=== PATIENT | female | born 1985 | race Caucasian/White ===

== ENCOUNTER 2017-01-05 11:56 | Emergency (ER) | payer SELFPAY ==
[2017-01-05 13:44] LABS: Bilirubin Negative (Negative); Blood, Urine Negative (Negative); Clarity Clear (Clear); Glucose, Urine (Dipstick) Negative (Negative); Leukocyte Negative (Negative); Nitrite Negative (Negative); Protein, Urine (Dipstick) Negative (Neg-Trace); Specific Gravity, Urine 1.015 (1.005-1.030); Urobilinogen 0.2 mg/dL (0.2-1.0); pH, Urine 7.5 (5.0-9.0)
[2017-01-05] MEDS ORDERED: Fentanyl 100 MCG/2 ML VIAL ONE (14:03)
[2017-01-05] MEDS ORDERED: Orphenadrine Citrate 60 MG/2 ML VIAL ONE (14:09)
== END 2017-01-05 14:28 | disposition home or self-care (01) ==
LOC: BURERS 11:56
DX: G89.29 Other chronic pain (principal); M54.5 Low back pain; M54.16 Radiculopathy, lumbar region
CPT/HCPCS: 81003; 96372; J2360; J3010

== ENCOUNTER 2018-06-26 22:03 | Emergency (ER) | payer SELFPAY ==
[2018-06-26] MEDS ORDERED: Dexamethasone 4 mg/ml Vial ONE ×2 (22:25)
[2018-06-26] MEDS ORDERED: AMOXicillin 250 MG CAP PO SCH (22:30)
[2018-06-26] MEDS ORDERED: Cephalexin 500 MG CAP ONE (22:35)
== END 2018-06-26 22:35 | disposition home or self-care (01) ==
LOC: BURERS 22:03
DX: H66.91 Otitis media, unspecified, right ear (principal); F17.210 Nicotine dependence, cigarettes, uncomplicated; E05.90 Thyrotoxicosis, unspecified without thyrotoxic crisis or storm; F31.9 Bipolar disorder, unspecified; F41.9 Anxiety disorder, unspecified; Z79.891 Long term (current) use of opiate analgesic; Z79.899 Other long term (current) drug therapy
CPT/HCPCS: 99282; J1100

== ENCOUNTER 2018-08-26 11:20 | Emergency (ER) | payer SELFPAY | END 2018-08-26 11:41 | disposition home or self-care (01) | LOC: BURERS 11:20 | DX: H72.91 Unspecified perforation of tympanic membrane, right ear (principal); E05.90 Thyrotoxicosis, unspecified without thyrotoxic crisis or storm; F41.9 Anxiety disorder, unspecified; F31.9 Bipolar disorder, unspecified; F17.210 Nicotine dependence, cigarettes, uncomplicated | CPT/HCPCS: 99282 ==

== ENCOUNTER 2018-09-17 08:44 | Emergency (ER) | payer SELFPAY ==
--- NOTE | 2018-09-17 09:54 | RAD ---
XR Lumbar Spine 2 Or 3 View: 09/17/2018 9:11 AM CLINICAL INDICATION: Pain, posttraumatic injury COMPARISON: None. FINDINGS: Fracture:No fracture. Arthropathy:None of significance. Incidental findings:Bilateral tubal ligation clips. There is a curvilinear radiopaque density overlyi ng the inferolateral left chest, of indeterminate chronicity. Correlate clinically. IMPRESSION: 1. No acute osseous abnormality.
--- NOTE | 2018-09-17 10:04 | CT ---
CT facial bones, noncontrast CLINICAL HISTORY: Pain, injury COMPARISON: None FINDINGS: Facial bones: Nasal bone irregularity, bilaterally compatible with nasal bone fracture. Facial soft tissues: Embedded metallic foreign body at the right lateral facial soft tissues producin g streak artifact Orbital contents: No acute abnormality. Paranasal sinuses: Mucosal thickening, and retention cyst formation. There is right mastoid effusion. IMPRESSION: Nasal bone fracture. Right mastoid effusion. Correlate clinically.
== END 2018-09-17 10:31 | disposition home or self-care (01) ==
LOC: BURERS 08:44
DX: S02.2XXA Fracture of nasal bones, initial encounter for closed fracture (principal); S40.022A Contusion of left upper arm, initial encounter; S40.021A Contusion of right upper arm, initial encounter; S80.12XA Contusion of left lower leg, initial encounter; S80.11XA Contusion of right lower leg, initial encounter; E05.90 Thyrotoxicosis, unspecified without thyrotoxic crisis or storm; F43.10 Post-traumatic stress disorder, unspecified; F41.9 Anxiety disorder, unspecified; F31.9 Bipolar disorder, unspecified; F17.210 Nicotine dependence, cigarettes, uncomplicated; Z79.899 Other long term (current) drug therapy; Z79.1 Long term (current) use of non-steroidal anti-inflammatories (NSAID); Y04.0XXA Assault by unarmed brawl or fight, initial encounter
CPT/HCPCS: 70486; 72100

== ENCOUNTER 2019-11-20 18:18 | Emergency (ER) | payer SELFPAY ==
[2019-11-20] MEDS ORDERED: Morphine 4 MG/ML VIAL ONE (18:29)
[2019-11-20] MEDS ORDERED: Ondansetron PF 4 MG/2 ML Vial ONE (18:29)
[2019-11-20 18:52] LABS: BHCG - Serum Negative (NEGATIVE); Pregs Control Background? CLEAR/WHITE (CLR/WHITE); Pregs Control Bar Appear? YES (CONTROL BAR)
[2019-11-20 18:56] LABS: Hemoglobin 13.1 g/dL (12.0-16.0); Mean Corpuscular HGB CONC 31.5 g/dL (32.0-36.0); Mean Corpuscular Hemoglobin 30.9 pg (27.0-31.0); Mean Corpuscular Volume 97.9 fL (78.0-98.0); Mean Platelet Volume 7.3 fL (7.4-10.4); Platelet Count 249 thou/uL (130-400); RBC Distribution Width 12.2 % (11.5-14.5); Red Blood Cell (RBC) Count 4.23 mill/uL (4.20-5.40); White Blood Cell (WBC) Count 15.2 thou/uL (4.8-10.8)
[2019-11-20 19:02] LABS: ALT (SGPT) 19 U/L (8-55); AST (SGOT) 14 U/L (5-34); Albumin 4.1 g/dL (3.5-5.0); Alkaline Phosphatase 62 U/L (40-110); Anion Gap 14 mmol/L (10-20); BUN (Urea Nitrogen) 7 mg/dL (7.0-18.7); Bilirubin, Total 0.4 mg/dL (0.2-1.2); Calc. Creatinine Clearance 0 mL/min (70-130); Calcium 9.3 mg/dL (7.8-10.44); Carbon Dioxide 23 mmol/L (22-29); Chloride 100 mmol/L (98-107); Estimated GFR-MDRD Greater than 90; Globulin 3.4 g/dL (2.4-3.5); Glucose 93 mg/dL (70-105); Lipase 6 U/L (8-78); Protein, Total 7.5 g/dL (6.0-8.3); Sodium 133 mmol/L (136-145)
[2019-11-20 19:10] LABS: Band 17 % (5-11); Lymphocytes 18 % (21-51); MDiff Complete? YES; Monocytes 6 % (0-10); Neutrophil 59 % (42-75)
[2019-11-20 19:42] LABS: Bilirubin Negative (Negative); Blood, Urine Moderate (Negative); Clarity Cloudy (Clear); Glucose, Urine (Dipstick) Negative (Negative); Ketone, Urine 15 mg/dL (Negative); Leukocyte Large (Negative); Nitrite Positive (Negative); Protein, Urine (Dipstick) 100 mg/dL (Neg-Trace); Urobilinogen 0.2 mg/dL (Less than 2)
[2019-11-20 19:43] LABS: Bacteria/HPF 4+ HPF (None Seen); RBC/HPF 0-3 HPF (0-3); Squamous Epithelial 0-3 HPF (0-3); WBC/HPF Greater Than 50 HPF (0-3)
[2019-11-20 19:50] LABS: Cocaine Metabolite Screen Not Detected (NotDetected); Phencyclidine (PCP) Not Detected (NotDetected); THC/Cannabinoid Screen Detected (NotDetected)
[2019-11-20 19:51] LABS: Amphetamine Detected (NotDetected); Barbiturates Screen Not Detected (NotDetected); Benzodiazepine Screen Not Detected (NotDetected); Medtox Control Line Valid? VALID (VALID); Methadone Not Detected (NotDetected); Methamphetamine Detected (NotDetected); Opiate Screen Detected (NotDetected); Oxycodone Screen Not Detected (NotDetected); Tricyclic Screen Not Detected (NotDetected)
[2019-11-20] MEDS ORDERED: cefTRIAXone\\ROCEPHIN 1 GM VIAL ONE (19:58)
[2019-11-20] MEDS ORDERED: Sodium Chloride 0.9% 100 ML ONE (19:58)
[2019-11-20] MEDS ORDERED: Ketorolac Tromethamine 30 MG/ML VIAL ONE (19:58)
--- NOTE | 2019-11-20 20:20 | RAD ---
PORTABLE CHEST: Date: 11-20-2019 An AP portable film at 1840 is compared with a 08-26-2019 study. FINDINGS: The heart is normal in size and the lungs are clear. No infiltrate or effusion was seen. There is no vascular congestion or edema. No air is seen beneath the diaphragm. IMPRESSION: No acute thoracic finding. POS: HOME
[2019-11-20] MEDS ORDERED: Metoclopramide HCl 10 MG/2 ML VIAL ONE (20:27)
[2019-11-20] MEDS ORDERED: diphenhydrAMINE 50 MG/ML VIAL ONE (20:27)
[2019-11-20] MEDS ORDERED: Magnesium 2 GM/50 ML BAG (IN WATER) ONE (20:34)
[2019-11-20] MEDS ORDERED: Magnesium Citrate 300 ML BOT ONE (20:35)
[2019-11-20] MEDS ORDERED: Magnesium Citrate 300 ML BOT PO SCH (20:45)
--- NOTE | 2019-11-20 21:23 | CT ---
CT ABDOMEN AND PELVIS WITHOUT CONTRAST: Date: 11-20-[address] of the abdomen and pelvis was done for evaluation of left flank pain. No prior scans were a vailable for comparison. The study was done without oral or IV contrast by request. FINDINGS: The lung bases are clear. No infiltrate or effusion was seen. There is a little asymmetry in the tiss ue of the lower left breast but not enough of it is seen to be diagnostic. The liver, spleen, pancrea s, adrenal glands, gallbladder, kidneys and abdominal aorta were unremarkable within the limitations of a noncontrast study. The bowel shows no distention but there is a large amount of fecal material w ithin it. No inflammatory changes are seen in the abdomen. No free air or free fluid is present. CT of the pelvis showed no acute changes. The patient's bowel is rather redundant so it is difficult to separate one section from the other, much less identify the appendix with any certainty. There are no inflammatory changes in the region. IMPRESSION: 1. Presumed constipation but no other acute abdominal or urinary tract findings. 2. Slight asymmetry of tissue in the lower left breast. This probably would be even less of concern i f we had two or three more slices above the first one. Nevertheless, a manual exam of this area to ma ke sure one feels no palpable abnormality would be prudent. Findings and recommendations called to Dr. Schneider at 1942 on 11-20-2019. POS: HOME
== END 2019-11-20 21:20 | disposition home or self-care (01) ==
LOC: BURERS 18:18
DX: N10 Acute pyelonephritis (principal); K59.00 Constipation, unspecified; E05.90 Thyrotoxicosis, unspecified without thyrotoxic crisis or storm; F41.9 Anxiety disorder, unspecified; F31.9 Bipolar disorder, unspecified; F43.10 Post-traumatic stress disorder, unspecified; F17.210 Nicotine dependence, cigarettes, uncomplicated; Z79.899 Other long term (current) drug therapy
CPT/HCPCS: 51701; 71045; 74176; 80053; 80306; 81003; 81015; 83605; 83690; 84703; 85025; 93005; 96365; 96367; 96375; J0696; J1200; J1885; J2270; J2405; J2765; J3475; J3490

== ENCOUNTER 2020-02-15 13:33 | Emergency (ER) | payer SELFPAY ==
[2020-02-15 14:24] LABS: #Basophils 0.1 thou/uL (0.0-0.2); #Eosinphils 0.1 thou/uL (0.0-0.7); #Lymphocytes 2.8 thou/uL (1.20-3.40); #Monocytes 0.4 thou/uL (0.11-0.59); #Neutrophils 3.9 thou/uL (1.40-6.50); %Basophils 0.8 % (0.0-1.0); %Lymphocytes 38.1 % (21.0-51.0); %Monocytes 5.5 % (0.0-10.0); %Neutrophils 53.7 % (42.0-75.0); Hemoglobin 13.2 g/dL (12.0-16.0); Mean Corpuscular HGB CONC 32.7 g/dL (32.0-36.0); Mean Corpuscular Hemoglobin 31.7 pg (27.0-31.0); Mean Corpuscular Volume 96.9 fL (78.0-98.0); Mean Platelet Volume 6.7 fL (7.4-10.4); Platelet Count 244 thou/uL (130-400); RBC Distribution Width 13.7 % (11.5-14.5); Red Blood Cell (RBC) Count 4.17 mill/uL (4.20-5.40); White Blood Cell (WBC) Count 7.3 thou/uL (4.8-10.8)
[2020-02-15 14:38] LABS: BHCG - Serum Negative (NEGATIVE); Pregs Control Background? CLEAR/WHITE (CLR/WHITE); Pregs Control Bar Appear? YES (CONTROL BAR)
[2020-02-15 14:43] LABS: ALT (SGPT) 19 U/L (8-55); AST (SGOT) 13 U/L (5-34); Acetaminophen Less than 6.0 mcg/mL (10.0-30.0); Albumin 3.8 g/dL (3.5-5.0); Alcohol Less than 10 mg/dL (Less than 10); Alkaline Phosphatase 39 U/L (40-110); Anion Gap 12 mmol/L (10-20); BUN (Urea Nitrogen) 10 mg/dL (7.0-18.7); Bilirubin, Total Less than 0.2 mg/dL (0.2-1.2); Calc. Creatinine Clearance 0 mL/min (70-130); Calcium 8.6 mg/dL (7.8-10.44); Carbon Dioxide 25 mmol/L (22-29); Chloride 107 mmol/L (98-107); Estimated GFR-MDRD 90; Globulin 2.9 g/dL (2.4-3.5); Glucose 72 mg/dL (70-105); Potassium 4.5 mmol/L (3.5-5.1); Protein, Total 6.7 g/dL (6.0-8.3); Salicylate Less than 8.0 mg/dL (15.0-30.0); Sodium 139 mmol/L (136-145)
[2020-02-15 15:14] LABS: Bilirubin Negative (Negative); Blood, Urine Negative (Negative); Clarity Cloudy (Clear); Glucose, Urine (Dipstick) Negative (Negative); Ketone, Urine Negative (Negative); Leukocyte Negative (Negative); Nitrite Negative (Negative); Protein, Urine (Dipstick) Negative (Neg-Trace); Urobilinogen 0.2 mg/dL (Less than 2); pH, Urine 8.5 (5.0-9.0)
[2020-02-15 15:31] LABS: Amphetamine Detected (NotDetected); Barbiturates Screen Not Detected (NotDetected); Benzodiazepine Screen Not Detected (NotDetected); Cocaine Metabolite Screen Not Detected (NotDetected); Medtox Control Line Valid? VALID (VALID); Methadone Not Detected (NotDetected); Methamphetamine Detected (NotDetected); Opiate Screen Not Detected (NotDetected); Oxycodone Screen Not Detected (NotDetected); Phencyclidine (PCP) Not Detected (NotDetected); THC/Cannabinoid Screen Not Detected (NotDetected); Tricyclic Screen Not Detected (NotDetected)
== END 2020-02-15 15:00 | disposition home or self-care (01) ==
LOC: BURERS 13:33
DX: R42 Dizziness and giddiness (principal); T43.595A Adverse effect of other antipsychotics and neuroleptics, initial encounter; F31.9 Bipolar disorder, unspecified; F41.9 Anxiety disorder, unspecified; F17.210 Nicotine dependence, cigarettes, uncomplicated; Z79.899 Other long term (current) drug therapy
CPT/HCPCS: 36415; 80053; 80178; 80306; 80307; 81003; 83605; 83880; 84703; 85025; 93005

== ENCOUNTER 2020-06-12 19:30 | Emergency (ER) | payer SELFPAY ==
--- NOTE | 2020-06-13 07:29 | RAD ---
CHEST 2 VIEWS: DATE: 06/12/2020. COMPARISON: Comparison is made with the 11/20/2019 study. The heart is normal in size. The mediastinum shows no w idening or shift. Both lungs are fully inflated and clear with no pneumothorax or pleural effusion. FINDINGS: No gross rib fracture was seen. The only questionable area was a small area in the lateral part of t he right 9th rib. I cannot tell if this is just an overlapping shadow, a slight cortical dip in the rib, or some minimal pleural thickening. At any rate, the finding is not definitive, and even it is real, it is not of large concern. IMPRESSION: Probably negative study. POS: HOME
== END 2020-06-12 20:20 | disposition home or self-care (01) ==
LOC: BURERS 19:30
DX: S20.211A Contusion of right front wall of thorax, initial encounter (principal); E05.90 Thyrotoxicosis, unspecified without thyrotoxic crisis or storm; F17.210 Nicotine dependence, cigarettes, uncomplicated; Z79.899 Other long term (current) drug therapy; W10.9XXA Fall (on) (from) unspecified stairs and steps, initial encounter
CPT/HCPCS: 71046

== ENCOUNTER 2020-11-04 21:57 | Emergency (ER) | payer SELFPAY ==
[2020-11-04] MEDS ORDERED: Bacitracin 1 PK ONE (22:13)
[2020-11-04] MEDS ORDERED: Lidocaine 1% PF 5 ML VIAL ONE (22:13)
[2020-11-04] MEDS ORDERED: Boostrix 0.5 ML (Tdap) VIAL ONE (22:48)
[2020-11-04] MEDS ORDERED: Sulfameth/Trimethoprim DS 800-160mg TAB ONE (22:50)
== END 2020-11-04 22:55 | disposition home or self-care (01) ==
LOC: BURERS 21:57
DX: S67.191A Crushing injury of left index finger, initial encounter (principal); S61.211A Laceration without foreign body of left index finger without damage to nail, initial encounter; E05.90 Thyrotoxicosis, unspecified without thyrotoxic crisis or storm; F17.210 Nicotine dependence, cigarettes, uncomplicated; Z23 Encounter for immunization; W45.8XXA Other foreign body or object entering through skin, initial encounter
CPT/HCPCS: 64450; 90471; 90715

== ENCOUNTER 2021-02-03 19:52 | Emergency (ER) | payer OTHER, SELFPAY ==
[2021-02-03] MEDS ORDERED: Lidocaine 1% w/Epinephrine 1:100K 20 ML VIAL ONE (20:40)
[2021-02-03] MEDS ORDERED: Bacitracin 1 PK ONE (20:40)
== END 2021-02-03 21:33 | disposition home or self-care (01) ==
LOC: BURERS 19:52
DX: S81.811A Laceration without foreign body, right lower leg, initial encounter (principal); W28.XXXA Contact with powered lawn mower, initial encounter
CPT/HCPCS: 12001

== ENCOUNTER 2021-06-11 18:13 | Emergency (ER) | payer SELFPAY ==
[2021-06-11] MEDS ORDERED: Dexamethasone 10 MG/ML VIAL ONE (19:26)
[2021-06-11] MEDS ORDERED: diphenhydrAMINE 50 MG/ML VIAL ONE (19:26)
[2021-06-11] MEDS ORDERED: Metoclopramide HCl 10 MG/2 ML VIAL ONE (19:26)
[2021-06-11 19:33] LABS: #Lymphocytes 1.1 thou/uL (1.20-3.40); #Monocytes 0.3 thou/uL (0.11-0.59); #Neutrophils 3.8 thou/uL (1.40-6.50); %Basophils 0.8 % (0.0-1.0); %Eosinophils 0.8 % (0.0-10.0); %Lymphocytes 21.7 % (21.0-51.0); %Monocytes 5.7 % (0.0-10.0); %Neutrophils 71.1 % (42.0-75.0); Mean Corpuscular HGB CONC 33.3 g/dL (32.0-36.0); Mean Corpuscular Hemoglobin 32.4 pg (27.0-31.0); Mean Corpuscular Volume 97.3 fL (78.0-98.0); Mean Platelet Volume 6.8 fL (7.4-10.4); Platelet Count 239 thou/uL (130-400); RBC Distribution Width 12.7 % (11.5-14.5); Red Blood Cell (RBC) Count 4.33 mill/uL (4.20-5.40); White Blood Cell (WBC) Count 5.3 thou/uL (4.8-10.8)
[2021-06-11 19:42] LABS: Prothrombin Time 13.5 sec (12.0-14.7)
[2021-06-11 19:46] LABS: ALT (SGPT) 24 U/L (8-55); AST (SGOT) 18 U/L (5-34); Albumin 3.9 g/dL (3.5-5.0); Alkaline Phosphatase 45 U/L (40-110); Anion Gap 14 mmol/L (10-20); BUN (Urea Nitrogen) 6 mg/dL (7.0-18.7); Bilirubin, Total 0.3 mg/dL (0.2-1.2); Calc. Creatinine Clearance 0 mL/min (70-130); Calcium 8.5 mg/dL (7.8-10.44); Carbon Dioxide 25 mmol/L (22-29); Chloride 102 mmol/L (98-107); Globulin 3.1 g/dL (2.4-3.5); Glucose 81 mg/dL (70-105); Sodium 137 mmol/L (136-145)
== END 2021-06-11 20:20 | disposition home or self-care (01) ==
LOC: BURERS 18:13
DX: M54.12 Radiculopathy, cervical region (principal); G43.909 Migraine, unspecified, not intractable, without status migrainosus
CPT/HCPCS: 70450; 72125; 80053; 85025; 85610; 96374; 96375; J1100; J1200; J2765

== ENCOUNTER 2021-09-14 09:30 | Emergency (ER) | payer SELFPAY ==
[2021-09-14 10:12] LABS: #Eosinphils 0.1 thou/uL (0.0-0.7); #Lymphocytes 2.3 thou/uL (1.20-3.40); #Monocytes 0.5 thou/uL (0.11-0.59); #Neutrophils 2.4 thou/uL (1.40-6.50); %Basophils 0.7 % (0.0-1.0); %Eosinophils 1.7 % (0.0-10.0); %Lymphocytes 43.2 % (21.0-51.0); %Monocytes 9.2 % (0.0-10.0); %Neutrophils 45.1 % (42.0-75.0); Mean Corpuscular HGB CONC 34.3 g/dL (32.0-36.0); Mean Corpuscular Hemoglobin 33.6 pg (27.0-31.0); Mean Corpuscular Volume 97.9 fL (78.0-98.0); Mean Platelet Volume 6.8 fL (7.4-10.4); Platelet Count 230 thou/uL (130-400); RBC Distribution Width 12.7 % (11.5-14.5); Red Blood Cell (RBC) Count 3.58 mill/uL (4.20-5.40); White Blood Cell (WBC) Count 5.3 thou/uL (4.8-10.8)
[2021-09-14 10:24] LABS: ALT (SGPT) 69 U/L (8-55); AST (SGOT) 51 U/L (5-34); Albumin 3.4 g/dL (3.5-5.0); Alkaline Phosphatase 51 U/L (40-110); Anion Gap 13 mmol/L (10-20); BUN (Urea Nitrogen) 9 mg/dL (7.0-18.7); Bilirubin, Total 0.3 mg/dL (0.2-1.2); Calc. Creatinine Clearance 0 mL/min (70-130); Calcium 8.3 mg/dL (7.8-10.44); Carbon Dioxide 26 mmol/L (22-29); Chloride 104 mmol/L (98-107); Globulin 2.8 g/dL (2.4-3.5); Glucose 87 mg/dL (70-105); Potassium 4.3 mmol/L (3.5-5.1); Protein, Total 6.2 g/dL (6.0-8.3); Sodium 139 mmol/L (136-145)
== END 2021-09-14 11:02 | disposition home or self-care (01) ==
LOC: BURERS 09:30
DX: G56.03 Carpal tunnel syndrome, bilateral upper limbs (principal); R60.0 Localized edema; I10 Essential (primary) hypertension; E05.90 Thyrotoxicosis, unspecified without thyrotoxic crisis or storm; F17.210 Nicotine dependence, cigarettes, uncomplicated; Z79.899 Other long term (current) drug therapy
CPT/HCPCS: 36415; 80053; 83880; 85025; 99283

== ENCOUNTER 2022-07-05 14:09 | Emergency (ER) | payer SELFPAY | END 2022-07-05 14:49 | disposition home or self-care (01) | LOC: BURERS 14:09 | DX: S93.401A Sprain of unspecified ligament of right ankle, initial encounter (principal); F17.210 Nicotine dependence, cigarettes, uncomplicated; X50.1XXA Overexertion from prolonged static or awkward postures, initial encounter; Y93.02 Activity, running ==

== ENCOUNTER 2024-03-19 10:48 | Emergency (ER) | payer OTHER, SELFPAY | END 2024-03-19 11:10 | disposition home or self-care (01) | LOC: BURERS 10:48 | DX: N64.52 Nipple discharge (principal); F17.210 Nicotine dependence, cigarettes, uncomplicated | CPT/HCPCS: 99283 ==

== ENCOUNTER 2024-05-17 09:26 | Emergency (ER) | payer OTHER ==
[2024-05-17 10:10] LABS: Bilirubin Negative (Negative); Blood, Urine Trace (Negative); Clarity Clear (Clear); Glucose, Urine (Dipstick) Negative (Negative); Ketone, Urine 40 mg/dL (Negative); Leukocyte Negative (Negative); Nitrite Negative (Negative); Protein, Urine (Dipstick) Negative (Neg-Trace); Urobilinogen 0.2 mg/dL (Less than 2)
[2024-05-17 10:15] LABS: Pregnancy Test - Urine (BHCG) Negative (Negative); Pregu Control Background? CLEAR/WHITE (CLR/WHITE); Pregu Control Bar Appear? YES (CONTROL BAR)
[2024-05-17 10:27] LABS: Bacteria/HPF Rare-Few HPF (None Seen); CAUTI Indications for Culture Dysuria,urgency,freq; RBC/HPF 0-3 HPF (0-3); Squamous Epithelial 0-3 HPF (0-3); WBC/HPF 0-3 HPF (0-3)
[2024-05-17 10:28] LABS: Urine Culture Reflex No No
== END 2024-05-17 10:31 | disposition home or self-care (01) ==
LOC: BURERS 09:26
DX: N64.52 Nipple discharge (principal); I10 Essential (primary) hypertension; F17.290 Nicotine dependence, other tobacco product, uncomplicated
CPT/HCPCS: 81001; 81025; 99283